=== PATIENT | female | born 1965 | race African-American/Black ===

== ENCOUNTER 2022-09-22 01:44 | Day surgery (SDC) | payer OTHER, SELFPAY ==
[2022-09-16 11:13] VITALS: BMI 21.7
--- NOTE | 2022-09-16 11:19 | PC.NURSE ---
Report to the Outpatient Waiting Room, entrance under the green pavilion located off [facility], at time 1200 on date 09/22/22. Planned Procedure Time: 1400. Time changes happen often and if your time is changed the preop area will call you the afternoon before. - You and your visitor will be asked to self-screen and do not enter if you have any COVID symptoms. - We encourage only one visitor and NO visitors under age 16 are allowed at this time. Your visitor will receive communication by the phone number that is given day of service. - The patient visitor is requested to social distance or may leave the building when not with patient due to restrictions. - A mask is OPTIONAL within the hospital. Patients may have clear liquids (water, carbonated beverages, clear teas, apple juice) until 3 hours prior to surgery with a maximum of 20 ounces. - No food from midnight until time of surgery Take the following medications with a SIP of water the morning of surgery: NONE Medications to discontinue per physician: VITAMINS Date to take last dose: 09/18/22 Please no make-up, nail mongolian, hairspray, perfume, deodorant, or body powder the day of surgery. No jewelry (including any body piercings) or valuables the day of surgery, leave them at home. Please take a shower or bath the night before, or the morning of, surgery with an antibacterial soap. Wear comfortable, loose fitting clothing. - Jewelry must be removed prior to entering the operating room. Rings and piercings that are not removed may be cut off. - The hospital will not accept responsibility for valuables. - Please leave all valuables, including medications, at home the day of surgery. If you are going home after surgery, a licensed school bus driver must drive you home. - NO public transportation without another adult. - We recommend that an adult stay with you for 24 hours following discharge. - We also recommend that you do not drive, make important decision, drink alcoholic beverages, or take any drugs that were not prescribed by your health care provider for at least 24 hours after your discharge time. Follow any additional instructions given to you from your surgeon. If you or anyone in your household have experienced Covid symptoms in the past week, please notify your surgeon or the nurse liaison at the phone number below for possible testing. Telephone instructions given to PT - REJI POWELL and asked if any additional questions and then verbalized understanding. Patient advised to call surgeon office or pre surgery nurse liaison [phone] if any additional questions.
[2022-09-22] VITALS (7 sets, daily range): BP systolic 101–159; BP diastolic 60–89; PULSE 54–73; RESP 16–20; TEMP 36.4–36.6; O2SAT 97–100
--- NOTE | 2022-09-22 11:44 | P.HP_ITS ---
History of Present Illness History of Present Illness Consent: Risks, benefits, and alternatives have been discussed and questions answered. Patient agrees to proceed with procedure. Chief complaint: Abnormal Uterine Bleed, Polyp of Cervix Uteri Narrative: Deysi Foster is a 57 year old female HPI Was having Postmenopausal bleeding and dyspareunia. Was found to have trichamonas which was treated.? Ultrasound showed possible polyps.? Discussed need for hysteroscopy D&C Review of Systems Review of Systems: ROS -PIERRE, -Vis changes, -F/s/c -CP, -palpitations, -irregular heart beats -SOB, -Cough/wheeze -Abdominal pain, -diarrhea/constipation -Vaginal discharge, -bleeding, -ulcerations or masses -New skin lesions, -dryness, -hairloss -trouble ambulation, -vertigo, -dizziness, -muscle weakeness, -joint pains -depression/anxiety, -suicidal/homicidal ideation, -hallucinations -hotflashes, -nightsweats, - mood swings, -vaginal dryness, -dyspareunia, - insomnia/poor sleep, -hair loss, -skin dryness, -brain fog, -decreased concentration, -intolerance to loud noises, -abnormal weight changes, -libido changes PMFSH Social History Social History Years smoked: 10 Smoking status: Former smoker Tobacco type: cigarettes Smoking end date: 11/21/00 Alcohol intake: current Drinks per week: 7 Alcohol use details: WINE Substance use: current Substance use type: marijuana Living arrangements: with family Spiritual care concerns: No Meds Home Medications and Allergies Home Medications Medication Instructions Recorded Confirmed Type conj estrogen-medroxyprogesterone 1 tablet PO DAILY 09/16/22 09/16/22 History 0.625 mg-5 mg tablet (Prempro) multivitamin 1 tablet PO DAILY 09/16/22 09/16/22 History Allergies Allergy/AdvReac Type Severity Reaction Status Date / Time Penicillins AdvReac Other Verified 09/16/22 11:12 Exam Narrative: EXAM GEN: NAD, well groomed female RESP: nonlabored respirations, No audible wheezes CV: normal rate GI: +BS, nontender to palpation, no rebound or guarding EXT: no cyanosis/clubbing/edema NEURO: AO x 3 PSYCH: judgment/insight intact, NL mood/affect Assessment and Plan Assessment and plan (1) Postmenopausal bleeding: Code(s): N95.0 - Postmenopausal bleeding Status: Acute Plan PMHx * No known medical problems PSHx * section FHx * mother:?, +Lung CA * father:?Alive, +Throat CA Allergy: PCN Assessment Abnormal uterine bleeding (disorder)?(N93.9/626.9) Abnormal uterine and vaginal bleeding, unspecified?modified Jul, Plan Abnormal uterine bleeding (disorder) Risk/benefits/altneratives discussed. Plan is to move forward with hysteroscopy D&C with possible Myosure.?? JOSY KINGSLEY M.D.?22 Sep 2022 11:39 AM
--- NOTE | 2022-09-22 12:23 | WPDHPUPDATE1 ---
History and Physical Update Update Date/Time: 09/22/22 12:23 History and Physical has been reviewed, including an updated exam of the patient. There are NO changes in the patient's condition. Risks, benefits, and alternatives have been discussed and questions answered. Patient agrees to proceed with procedure.
--- NOTE | 2022-09-22 12:37 | P.PNAN_ITS ---
Anes - Initial Pre Proc Eval Procedure: Operation Date: 09/22/22 14:00 Proposed Procedures p Hysteroscopy Dilation and Curettage with Possible Myosure, Polypectomy - Negrita Salazar MD Date/Time: 09/22/22 12:37 Surgeon: Negrita Salazar MD Pre Op Diagnosis: Abnormal Uterine Bleed, Polyp of Cervix Uteri Patient Data Age: 57 Gender: F Height: 1.55 m Weight: 51.5 kg Last Vital Signs Temp 36.6 C 09/22/22 12:25 Pulse 73 09/22/22 12:25 Resp 16 09/22/22 12:25 BP 117/74 09/22/22 12:25 Pulse Ox 100 09/22/22 12:25 O2 Del Method Room Air 09/22/22 12:25 Allergies Allergy/AdvReac Type Severity Reaction Status Date / Time Penicillins AdvReac Other Verified 09/16/22 11:12 Home Medications Medication Instructions Recorded Confirmed Type conj estrogen-medroxyprogesterone 1 tablet PO DAILY 09/16/22 09/16/22 History 0.625 mg-5 mg tablet (Prempro) multivitamin 1 tablet PO DAILY 09/16/22 09/16/22 History Patient hx anesthesia problems: none Family hx anesthesia problems: none Results Review: All pre-operative results and documents have been reviewed as part of the pre- operative evaluation. [facility] Social History Social History Years smoked: 10 Smoking status: Former smoker Tobacco type: cigarettes Smoking end date: 11/21/00 Alcohol intake: current Drinks per week: 7 Alcohol use details: WINE Substance use: current Substance use type: marijuana Living arrangements: with family Spiritual care concerns: No Anes - Eval Final PreProcedure Day of Procedure 09/22/22 12:37 Patient weight: normal Heart: regular rate and rhythm Lungs: clear to auscultation Airway: Mallampati scale class 1 Neurological: alert and oriented Last oral intake: >/= 8 hours ASA classification: II Emergent: no Anesthetic plan: proceed Anesthesia type and monitoring: general GIVS and standard monitoring Results Review: All pre-operative results and documents have been reviewed as part of the pre- operative evaluation. Informed Consent: The patient's anesthetic plan and its attendant risks and benefits were discussed with the patient/family/POA. Questions were solicited and answers provided to the satisfaction of the patient/family/POA.
[2022-09-22] MEDS: ACETAMINOPHEN 500 MG TABLET 1000 MG PO (12:44)
[2022-09-22] MEDS: LACTATED RINGERS 1,000 ML 30 ML IV CONT (12:53)
[2022-09-22] MEDS: KETOROLAC 15 MG/ML VIAL (*BKC) IV PUSH (13:55)
[2022-09-22] MEDS: LIDOCAINE HCL 1% PF INJ 5 ML VIAL 10 ML INFILTRATE (14:08)
--- NOTE | 2022-09-22 14:33 | W.PM.PROC2 ---
Procedure Note - Detailed Date of Procedure 09/22/22 Pre-op Diagnosis Abnormal Uterine Bleed, Polyp of Cervix Uteri Post-op Diagnosis Same Procedure Performed hysteroscopy D&C Surgeon Negrita Salazar MD Anesthesia MAC Indications Patient had postmenopausal bleeding. Was found to have an STI which was treated but with ultrasound showing possible polyps x2 discussed risk/beneifts/and alternatives of hysteroscopy D&C and decided to proceed Findings Small protrusion within cervix, sampled with currettage. Endometrium atrophic and without lesions. Description of Procedure The patient was taken to the operating room where MAC was found to be adequate. She was then prepared and draped in the dorsal lithotomy position in [facility]. A speculum used to visualize the cervix and a single toothed tenaculum placed on anterior lip. 5cc 1% lidocaine was injected for paracervical block. The cervix was serially dilated and the uterus sounded to 5cm. The hysteroscope was inserted and 0.9% saline used for distension. The patient was moving quite a bit and camera came out of the cervix and all the saline flowed into blanket and out to the floor. So the anesthesia was adjusted and the speculum reinserted. The hysteroscope was able to be inserted and the cavity assessed. The uterine cavity appeared atrophic and without lesion. Narrow cavity at top without protrusions. There was a small area on left side of cervix upon removal of scope noted with appearance of early/small polyp. So sharp currettage performed and sampled the lining over this region and the cavity. The specimen was placed on telfa and sent to pathology. Instruments removed and there was no active bleeding. Estimated Blood Loss 1 Urine Output 20 Pathology Yes (endometrial currettings) Complications No immediate complications Condition Stable Disposition PACU
== END 2022-09-22 16:15 | disposition home or self-care (01) ==
PROVIDERS: Visit Provider Obstetrics & Gynecology
PROC: 0U5B8ZZ Destruction of Endometrium, Via Natural or Artificial Opening Endoscopic (ICD-10-PCS; CPT 58563; principal; 2022-09-22 14:00)
DX: N95.0 Postmenopausal bleeding (principal); N85.8 Other specified noninflammatory disorders of uterus; Z87.891 Personal history of nicotine dependence; F12.90 Cannabis use, unspecified, uncomplicated
CPT/HCPCS: 58558; 88305; A9270; J1100; J1200; J1885; J2704; J3010; J7030; J7120